=== PATIENT | female | born 1950 | race Caucasian/White ===

== ENCOUNTER 2017-09-16 17:55 | Emergency (ER) | payer MEDICARE, OTHER ==
[2017-09-16] MEDS: Phenazopyridine 95 MG Tab PO ONE (18:29)
--- NOTE | 2017-09-16 18:30 | EDM.PDOC ---
ED HPI GENERAL MEDICAL PROBLEM - General Chief Complaint: Genitourinary Problem Stated Complaint: UTI [id number] Time Seen by Provider: 09/16/17 18:15 Source of Information: Reports: Patient History Limitations: Reports: Language Barrier - History of Present Illness INITIAL COMMENTS - FREE TEXT/NARRATIVE: This 66 yo female patient reports to the ED with urinary frequency and dysuria that started today. The patient has a history of UTI's in the past with similar symptoms. Onset: Today Duration: Constant Location: Reports: Abdomen Quality: Reports: Ache, Dull Severity: Mild Improves with: Reports: None Worsens with: Reports: None Associated Symptoms: Reports: No Other Symptoms Vaginal Pain Score (Numeric/FACES): 7 - Related Data Allergies Allergy/AdvReac Type Severity Reaction Status Date / Time No Known Allergies Allergy Verified 09/16/17 18:17 Home Meds: Home Meds Levothyroxine 25 mcg PO DAILY 09/16/17 [History] Past Medical History Endocrine/Metabolic History: Reports: Hypothyroidism - Past Surgical History HEENT Surgical History: Reports: Tonsillectomy Female Surgical History: Reports: Hysterectomy Musculoskeletal Surgical History: Reports: Arthroscopic Knee, Hip Replacement, Other (See Below) Other Musculoskeletal Surgeries/Procedures:: ankle surgery, bonegraft to the right knee ED ROS GENERAL - Review of Systems Review Of Systems: ROS reveals no pertinent complaints other than HPI. ED EXAM, RENAL/ - Physical Exam Exam: See Below Exam Limited By: No Limitations General Appearance: Alert, WD/WN, Moderate Distress Eye Exam: Bilateral Eye: EOMI, Normal Inspection, PERRL Ears: Normal External Exam, Normal Canal, Hearing Grossly Normal, Normal TMs Nose: Normal Inspection, Normal Mucosa, No Blood Throat/Mouth: Normal Inspection, Normal Lips, Normal Teeth, Normal Gums, Normal Oropharynx, Normal Voice, No Airway Compromise Head: Atraumatic, Normocephalic Neck: Normal Inspection, Supple, Non-Tender, Full Range of Motion Respiratory/Chest: No Respiratory Distress, Lungs Clear, Normal Breath Sounds, No Accessory Muscle Use, Chest Non-Tender Cardiovascular: Normal Peripheral Pulses, Regular Rate, Rhythm, No Edema, No Gallop, No JVD, No Murmur, No Rub GI/Abdominal: Normal Bowel Sounds, Soft, Tender (mild lower abdomen) (Female) Exam: Deferred Rectal (Female) Exam: Deferred Back Exam: Normal Inspection, Full Range of Motion, NT Extremities: Normal Inspection, Normal Range of Motion, Non-Tender, Normal Capillary Refill, No Pedal Edema Psychiatric: Normal Affect, Normal Mood Skin Exam: Warm, Dry, Intact, Normal Color, No Rash Lymphatic: No Adenopathy Course - Vital Signs Last Recorded V/S: Last Vital Signs Temp 36.7 C 09/16/17 18:12 Pulse 69 09/16/17 18:12 Resp 16 09/16/17 18:12 BP 131/65 09/16/17 18:12 Pulse Ox 98 09/16/17 18:12 - Orders/Labs/Meds Orders: Active Orders 24 hr Category Date Time Status UA W/MICROSCOPIC [URIN] Stat Lab 09/16/17 18:05 Ordered Meds: Medications Discontinued Medications Generic Name Dose Route Start Last Admin Trade Name Tonyq PRN Reason Stop Dose Admin Phenazopyridine HCl 190 mg 09/16/17 18:22 Urinary Pain Relief PO 09/16/17 18:23 ONETIME ONE Departure - Departure Time of Disposition: 18:35 Disposition: Home, Self-Care 01 Condition: Fair Clinical Impression: UTI, Urinary tract infectious disease - Discharge Information Instructions: Urinary Tract Infection, Adult, [id number] Care Plan Goals: The patient was advised of her examination and lab results during the visit. The patient was given an oral dose of Pyridium while in the ED. The patient was discharged with a script for Keflex (500 mg) to take 1 by mouth 2 times per day for 5 days and Pyridium (200 mg) #6 to take 1 by mouth 3 times per day as needed. The patient will be contacted if the urine culture results demonstrate resistance to Keflex. If the patient has any additional symptoms or concerns, the patient should follow-up with her primary care facility or return to the emergency department. - My Orders Last 24 Hours: My Active Orders 09/16/17 18:05 UA W/MICROSCOPIC [URIN] Stat - Assessment/Plan Last 24 Hours: My Active Orders 09/16/17 18:05 UA W/MICROSCOPIC [URIN] Stat
== END 2017-09-16 18:41 | disposition home or self-care (01) ==
LOC: DL.ED 17:55
DX: N39.0 Urinary tract infection, site not specified (principal); E03.9 Hypothyroidism, unspecified; Z79.899 Other long term (current) drug therapy; Z90.710 Acquired absence of both cervix and uterus
CPT/HCPCS: 81001; 99283; A9270